=== PATIENT | female | born 1990 | race African-American/Black ===

== ENCOUNTER 2021-07-20 10:09 | Emergency (ER) | payer SELFPAY ==
[2021-07-20] MEDS ORDERED: Dexamethasone 4 MG TAB ONE (10:32)
[2021-07-20] MEDS ORDERED: Ketorolac Tromethamine 30 MG/ML VIAL ONE ×2 (10:32→11:16)
[2021-07-20] MEDS ORDERED: Ondansetron ODT 4 MG TAB ONE (10:32)
[2021-07-20] MEDS ORDERED: Acetaminophen 500 MG TAB ONE (10:33)
[2021-07-20 10:53] LABS: Pregnancy Test - Urine (BHCG) Negative (Negative); Pregu Control Background? CLEAR/WHITE (CLR/WHITE); Pregu Control Bar Appear? YES (CONTROL BAR); Specific Gravity 1.029 (1.002-1.036)
[2021-07-20] MEDS ORDERED: Bicillin LA 1.2 MILLION UNITS/2 ML SYRINGE ONE (11:16)
== END 2021-07-20 11:40 | disposition home or self-care (01) ==
LOC: ERS 10:09
DX: J02.0 Streptococcal pharyngitis (principal); R51.9 Headache, unspecified; Z79.899 Other long term (current) drug therapy
CPT/HCPCS: 51701; 81025; 87430; 96372; J0561; J1885; J8540; Q0162

== ENCOUNTER 2021-11-12 17:59 | Emergency (ER) | payer SELFPAY ==
[2021-11-12 19:36] LABS: Pregnancy Test - Urine (BHCG) Negative (Negative)
[2021-11-12 19:37] LABS: Pregu Control Background? CLEAR/WHITE (CLR/WHITE); Pregu Control Bar Appear? YES (CONTROL BAR); Specific Gravity 1.027 (1.002-1.036)
== END 2021-11-12 20:29 | disposition home or self-care (01) ==
LOC: ERS 17:59
DX: M79.672 Pain in left foot (principal); R11.0 Nausea
CPT/HCPCS: 81025

== ENCOUNTER 2022-01-09 16:22 | Emergency (ER) | payer SELFPAY ==
[2022-01-09] MEDS ORDERED: Acetaminophen 500 MG TAB ONE (19:15)
== END 2022-01-09 20:46 | disposition home or self-care (01) ==
LOC: ERS 16:22
DX: J06.9 Acute upper respiratory infection, unspecified (principal)
CPT/HCPCS: 87804; 99283

== ENCOUNTER 2022-03-13 10:34 | Emergency (ER) | payer MEDICAID, SELFPAY ==
[2022-03-13 11:29] LABS: #Eosinphils 0.2 thou/uL (0.0-0.7); #Lymphocytes 2.1 thou/uL (1.20-3.40); #Monocytes 0.5 thou/uL (0.11-0.59); #Neutrophils 6.4 thou/uL (1.40-6.50); %Basophils 0.2 % (0.0-1.0); %Eosinophils 2.6 % (0.0-10.0); %Lymphocytes 22.8 % (21.0-51.0); %Neutrophils 69.4 % (42.0-75.0); Hemoglobin 11.9 g/dL (12.0-16.0); Mean Corpuscular Hemoglobin 29.9 pg (27.0-31.0); Mean Corpuscular Volume 90.5 fl (78.0-98.0); Mean Platelet Volume 6.4 fL (7.4-10.4); Platelet Count 350 10x3/uL (130-400); RBC Distribution Width 13.8 % (11.5-14.5); White Blood Cell (WBC) Count 9.2 10x3/uL (4.8-10.8)
[2022-03-13] MEDS ORDERED: Ondansetron ODT 4 MG TAB ONE (13:22)
== END 2022-03-13 13:53 | disposition home or self-care (01) ==
LOC: ERS 10:34
DX: O20.0 Threatened abortion (principal); B34.9 Viral infection, unspecified; Z20.822 Contact with and (suspected) exposure to COVID-19; Z3A.01 Less than 8 weeks gestation of pregnancy
CPT/HCPCS: 36415; 84702; 85025; 86900; 86901; Q0162; U0003; U0005

== ENCOUNTER 2022-05-29 08:05 | Emergency (ER) | payer MEDICAID ==
[2022-05-29] MEDS ORDERED: Acetaminophen 500 MG TAB ONE (08:28)
[2022-05-29] MEDS ORDERED: Acetaminophen/Codeine 30-300mg Tablet ONE (08:39)
== END 2022-05-29 10:35 | disposition home or self-care (01) ==
LOC: ERS 08:05
DX: K04.7 Periapical abscess without sinus (principal); Z87.891 Personal history of nicotine dependence
CPT/HCPCS: 99282

== ENCOUNTER 2023-02-27 16:10 | Emergency (ER) | payer OTHER ==
[~2023-02-27 16:10] MED LIST: Iopamidol 370 76% 100 ML VIAL ONE
[2023-02-27] MEDS ORDERED: Ondansetron PF 4 MG/2 ML Vial ONE (17:16)
[2023-02-27] MEDS ORDERED: Famotidine/PF 20 mg/2ml Vial ONE (17:18)
[2023-02-27 17:23] LABS: #Eosinphils 0.3 thou/uL (0.0-0.7); #Monocytes 0.3 thou/uL (0.11-0.59); #Neutrophils 3.5 thou/uL (1.40-6.50); %Basophils 0.6 % (0.0-1.0); %Eosinophils 4.6 % (0.0-10.0); %Lymphocytes 38.3 % (21.0-51.0); %Monocytes 4.8 % (0.0-10.0); %Neutrophils 51.4 % (42.0-75.0); Hematocrit 36.8 % (36.0-47.0); Hemoglobin 12.1 g/dL (12.0-16.0); Mean Corpuscular HGB CONC 32.9 g/dL (32.0-36.0); Mean Corpuscular Hemoglobin 28.1 pg (27.0-31.0); Mean Corpuscular Volume 85.6 fl (78.0-98.0); Mean Platelet Volume 8.4 fL (7.4-10.4); Platelet Count 401 10x3/uL (130-400); RBC Distribution Width 14.4 % (11.5-14.5); White Blood Cell (WBC) Count 6.8 10x3/uL (4.8-10.8)
[2023-02-27 17:40] LABS: BHCG - Serum Negative (NEGATIVE); Pregs Control Background? CLEAR/WHITE (CLR/WHITE); Pregs Control Bar Appear? YES (CONTROL BAR)
[2023-02-27] MEDS ORDERED: Ketorolac Tromethamine 30 MG (1 mL) VIAL ONE (17:50)
[2023-02-27 17:52] LABS: Troponin I Less than 0.010 ng/mL (< 0.028)
[2023-02-27 17:56] LABS: ALT (SGPT) 34 U/L (8-55); AST (SGOT) 45 U/L (5-34); Alkaline Phosphatase 83 U/L (40-110); Anion Gap 9 mmol/L (10-20); BUN (Urea Nitrogen) 9 mg/dL (7.0-18.7); Bilirubin, Total 0.3 mg/dL (0.2-1.2); Calc. Creatinine Clearance 0 mL/min (70-130); Calcium 9.3 mg/dL (7.8-10.44); Carbon Dioxide 29 mmol/L (22-29); Chloride 105 mmol/L (98-107); Estimated GFR 94; Globulin 3.5 g/dL (2.4-3.5); Glucose 98 mg/dL (70-105); Lipase 30 U/L (8-78); Potassium 3.8 mmol/L (3.5-5.1); Protein, Total 7.5 g/dL (6.0-8.3); Sodium 139 mmol/L (136-145)
[2023-02-27] MEDS ORDERED: Morphine 4 MG/ML VIAL ONE (19:53)
== END 2023-02-27 20:57 | disposition home or self-care (01) ==
LOC: ERS 16:10
DX: K80.70 Calculus of gallbladder and bile duct without cholecystitis without obstruction (principal); Z87.891 Personal history of nicotine dependence
CPT/HCPCS: 74177; 76705; 80053; 83605; 83690; 84484; 84703; 85025; 93005; 96374; 96375; J1885; J2270; J2405; Q9967; S0028

== ENCOUNTER 2023-03-07 07:58 | Outpatient (CLI) | payer OTHER ==
[2023-03-07 08:50] LABS: #Basophils 0.1 10x3/uL (0.0-0.2); #Eosinphils 0.2 10x3/uL (0.0-0.5); #Monocytes 0.3 10x3/uL (0.0-1.1); #Neutrophils 2.4 10x3/uL (1.5-8.4); %Eosinophils 4.6 % (0.0-6.0); %Lymphocytes 41.5 % (18.0-47.0); %Monocytes 5.8 % (0.0-10.0); %Neutrophils 46.9 % (40.0-75.0); Hematocrit 39.2 % (34.9-44.5); Hemoglobin 12.4 g/dL (12.0-15.5); Mean Corpuscular HGB CONC 31.6 g/dL (32.0-36.0); Mean Corpuscular Hemoglobin 27.2 pg (27.0-33.0); Mean Platelet Volume 8.6 fl (7.4-10.4); Platelet Count 433 10x3/uL (150-450); RBC Distribution Width 14.8 % (11.5-14.5); Red Blood Cell (RBC) Count 4.56 10x6/uL (3.90-5.03)
[2023-03-07 09:02] LABS: BHCG - Serum Negative (NEGATIVE); Pregs Control Background? CLEAR/WHITE (CLR/WHITE); Pregs Control Bar Appear? YES (CONTROL BAR)
[2023-03-07 09:04] LABS: ALT (SGPT) 53 U/L (8-55); AST (SGOT) 19 U/L (5-34); Albumin 4.1 g/dL (3.5-5.0); Alkaline Phosphatase 100 U/L (40-110); Anion Gap 12 mmol/L (10-20); BUN (Urea Nitrogen) 9 mg/dL (7.0-18.7); Bilirubin, Direct 0.2 mg/dL (0.1-0.3); Bilirubin, Total 0.3 mg/dL (0.2-1.2); Calc. Creatinine Clearance 0 mL/min (70-130); Calcium 9.6 mg/dL (7.8-10.44); Carbon Dioxide 26 mmol/L (22-29); Chloride 107 mmol/L (98-107); Estimated GFR 94; Globulin 3.1 g/dL (2.4-3.5); Glucose 93 mg/dL (70-105); Potassium 4.4 mmol/L (3.5-5.1); Protein, Total 7.2 g/dL (6.0-8.3); Sodium 141 mmol/L (136-145)
== END 2023-03-07 07:59 | disposition home or self-care (01) ==
LOC: LABBT 07:58
PROVIDERS: ATTEND Surgery
DX: Z01.812 Encounter for preprocedural laboratory examination (principal); K80.20 Calculus of gallbladder without cholecystitis without obstruction
CPT/HCPCS: 80053; 80076; 84703; 85025

== ENCOUNTER 2023-03-10 05:59 | Day surgery (SDC) | payer OTHER ==
[2023-03-07 08:30] VITALS: BMI 53.2
[2023-03-10] MEDS ORDERED: EPINEPHrine 1 MG/ML VIAL ONE (06:40)
[2023-03-10] MEDS ORDERED: Bupivacaine 0.25% HCL 30 ML VIAL ONE (06:40)
[2023-03-10] MEDS ORDERED: Indocyanine Green 25 MG/10 ML VIAL ONE (06:54)
[2023-03-10] MEDS ORDERED: Lidocaine 1% PF 5 ML VIAL ONE (06:56)
[2023-03-10] MEDS ORDERED: fentaNYL PF 100 MCG/2 ML SYRINGE ONE (06:56)
[2023-03-10] MEDS ORDERED: Rocuronium Bromide 10 MG/ML (10ML VIAL) ONE (06:56)
[2023-03-10] MEDS ORDERED: PROPOFOL 20 ML ONE (06:56)
[2023-03-10] MEDS ORDERED: Midazolam HCl 2 mg/2 ml Vial ONE (07:23)
[2023-03-10] MEDS ORDERED: cefOXitin 2 GM VIAL ONE (07:35)
[2023-03-10] MEDS ORDERED: Sodium Chloride 0.9% 100 ML ONE (07:35)
[2023-03-10] MEDS ORDERED: Dexamethasone 20 MG/5 ML VIAL ONE (08:01)
[2023-03-10] MEDS ORDERED: Ondansetron PF 4 MG/2 ML Vial ONE (08:01)
[2023-03-10] MEDS ORDERED: ePHEDrine Sulfate 50 MG/10 ML VIAL ONE (08:06)
[2023-03-10] MEDS ORDERED: SUGAMMADEX SODIUM 200 MG/2 ML VIAL ONE ×2 (08:30→08:31)
[2023-03-10] MEDS ORDERED: Fentanyl 250 MCG/5 ML VIAL ONE (08:52)
[2023-03-10] MEDS ORDERED: HYDROcodone/Acetaminophen 5/325 mg Tablet ONE (10:12)
== END 2023-03-10 10:40 | disposition home or self-care (01) ==
LOC: SDC 05:59
PROVIDERS: ATTEND Surgery
PROC: 0FT44ZZ Resection of Gallbladder, Percutaneous Endoscopic Approach (ICD-10-PCS; principal; 2023-03-10)
DX: K80.10 Calculus of gallbladder with chronic cholecystitis without obstruction (principal); F90.9 Attention-deficit hyperactivity disorder, unspecified type; F39 Unspecified mood [affective] disorder; D64.9 Anemia, unspecified; Z79.899 Other long term (current) drug therapy; Z88.8 Allergy status to other drugs, medicaments and biological substances; Z87.891 Personal history of nicotine dependence
CPT/HCPCS: 88304; J0171; J0694; J1100; J2250; J2405; J2704; J3010; J3490; S0020

== ENCOUNTER 2023-04-09 16:55 | Emergency (ER) | payer OTHER ==
[2023-04-09] MEDS ORDERED: Ibuprofen 800 MG TAB ONE (17:32)
[2023-04-09 18:40] LABS: SARS-CoV-2 NAA Rapid Test Not Detected (NotDetected)
== END 2023-04-09 19:32 | disposition home or self-care (01) ==
LOC: ERS 16:55
DX: J02.9 Acute pharyngitis, unspecified (principal); Z87.891 Personal history of nicotine dependence
CPT/HCPCS: 87081; 87430; 99283

== ENCOUNTER 2024-02-22 02:59 | Emergency (ER) | payer OTHER, SELFPAY ==
[2024-02-22] MEDS ORDERED: Dexamethasone 10 MG/ML VIAL ONE (04:40)
== END 2024-02-22 04:50 | disposition home or self-care (01) ==
LOC: ERS 02:59
DX: J06.9 Acute upper respiratory infection, unspecified (principal); I10 Essential (primary) hypertension; Z87.891 Personal history of nicotine dependence
CPT/HCPCS: 71045; 87428; 96372; J1100

== ENCOUNTER 2024-03-17 22:28 | Emergency (ER) | payer SELFPAY ==
[2024-03-17] MEDS ORDERED: Acetaminophen 500 MG TAB ONE (22:56)
== END 2024-03-17 23:40 | disposition home or self-care (01) ==
LOC: ERS 22:28
DX: J11.1 Influenza due to unidentified influenza virus with other respiratory manifestations (principal); I10 Essential (primary) hypertension; Z87.891 Personal history of nicotine dependence
CPT/HCPCS: 87428; 99283